=== PATIENT | female | born 1960 | race Caucasian/White ===

== ENCOUNTER 2021-12-14 14:57 | Emergency (ER) | payer BC ==
--- OUTSIDE RECORDS SUMMARY | 2021-12-14 15:01 | XMS REPORT | Continuity of Care Document ---
:1960 Author Organization [facility] t Address [address] [place] [address] Care Team Providers Name Role Phone Pinky FIELDS Primary Care Physician Unavailable Nely Hilliard MD Attending Clinician NELY HILLIARD Attending Clinician Unavailable Payers Payer Name Policy Type Policy Number Effective Date Expiration Date S ource Problems Condition Condition Condition Status Onset Resolution Last Treating Co mments Source Name Details Category Date Date Treatment Clinician Date Varicose Varicose Disease Active Unive rs veins of veins of 9-24 ity of lower lower 00:00: [place] extremitie extremitie 00 Me dical s with s with Branch inflammati inflammati on on Essential Essential Disease Active Uni vers hypertensi hypertensi 6-03 it y of on on 00:00: [place] 00 Medical Branch Class 3 Class 3 Disease Active Univers severe severe 6-03 ity of obesity obesity 00:00: [place] due to due to 00 Medical excess excess Branch calories calories with with serious serious comorbidit comorbidit y and body y and body mass index mass index (BMI) of (BMI) of 40.0 to 40.0 to 44.9 in 44.9 in adult adult Allergies, Adverse Reactions, Alerts Allergy Allergy Status Severity Reaction(s) Onset Inactive Treating Comm ents Source Name Type Date Date Clinician NO KNOWN Drug Active Univers ALLERGIE Class ity of S [place] [facility] Social History Social Habit Start Date Stop Date Quantity Comments Source Exposure to Not sure University of SARS-CoV-2 [place] [facility] (event) Branch History SDOH University o f Alcohol Std [place] [facility] Drinks Branch History SDKS University o f Alcohol Binge [place] [facility] History SDOH University o f Alcohol Comment [place] [facility] Alcohol intake 2021-10-17 2021-10-17 Lifetime University of 00:00:00 00:00:00 non-drinker [place] [facility] (finding) Branch History SDOH 2021-03-14 2021-03-14 1 [place] o f Alcohol Frequency 00:00:00 00:00:00 [place] [facility] Tobacco use and 2021-02-22 2021-02-22 Never used Universit y of exposure 00:00:00 00:00:00 [facility] Sex Assigned At [birth year] Universit y of 00:00:00 00:00:00 [facility] Smoking Status Start Date Stop Date Source Never smoker [facility] Branch Medications Ordered Filled Start Stop Current Ordering Indication Dosage Frequency Signature Comments Components Source Medication Medication Date Date Medication? Clinician (SIG) Name Name lisinopriL- 2021-0 Yes [id number] 1{tbl} Take 1 Univers hydrochloro 1-05 tablet by ity of thiazide 00:00: mouth [place] 10-12.5 mg 00 daily. Medical per tablet Branch Immunizations Ordered Filled Immunization Date Status Comments Sourc e Immunization Name Name Td 2021-02-22 Completed University 00:00:00 [facility] Vital Signs Vital Name Observation Time Observation Value Comments Source Systolic blood 2021-10-17 160 mm[Hg] 160/99 hasn't University o f pressure 15:41:00 taken [facility] Diastolic blood 2021-10-17 99 mm[Hg] 160/99 hasn't University of pressure 15:41:00 taken med [facility] Heart rate 2021-10-17 82 /min University 15:41:00 [facility] Body temperature 2021-10-17 36.61 Claudine University of 15:41:00 [facility] Respiratory rate 2021-10-17 18 /min University 15:41:00 [facility] Body height 2021-10-17 167.6 cm University of 15:41:00 [facility] Body weight 2021-10-17 109.634 kg University of 15:41:00 [facility] BMI 2021-10-17 39.01 kg/m2 University of 15:41:00 [facility] Oxygen saturation 2021-10-17 98 /min University in Arterial blood 15:41:00 [facility] by Pulse oximetry Branch Procedures This patient has no known procedures. Encounters Start End Encounter Admission Attending Care Care Encounter Source Date/Time Date/Time Type Type Clinicians Facility Department ID 2021-10-17 2021-10-17 Office BEBE Hilliard [id number] [facility] 09:30:00 10:42:46 Visit [id number] [facility] AT [id number] Hi dical VICTORY [address] Branch [place] 2021-10-17 2021-10-17 Outpatient R [facility] [id number] [facility] 09:30:00 10:42:46 [facility] Results This patient has no known results.
[2021-12-14] MEDS ORDERED: NA CHLORIDE 0.9% 1,000 ML ONE (15:37)
[2021-12-14 16:02] LABS: Hematocrit 35.7 % (36.0-45.0); MPV 10.4 fL (7.6-11.3); RBC Red Blood Cell Count 4.01 M/uL (3.86-4.86)
[2021-12-14 16:26] LABS: ALT/SGPT 25 U/L (12-78); AST/SGOT 22 U/L (15-37); Albumin 3.4 g/dL (3.4-5.0); Alkaline Phosphatase 91 U/L (45-117); BUN Blood Urea Nitrogen 15 mg/dL (7-18); Bicarbonate 28 mmol/L (21-32); Bilirubin Direct 0.1 mg/dL (0-0.2); Bilirubin Total 0.4 mg/dL (0.2-1.0); Glucose Level 117 mg/dL (74-106); Magnesium 1.7 mg/dL (1.8-2.4); Potassium 3.5 mmol/L (3.5-5.1); Protein, Total 7.2 g/dL (6.4-8.2); Sodium Level 134 mmol/L (136-145)
[2021-12-14 16:31] LABS: Troponin High Sensitivity < 3.00 pg/mL (<58.9)
[2021-12-14 16:44] LABS: Urine Blood 3+ (Negative); Urine Glucose Negative (Negative); Urine Protein Negative (Negative)
[2021-12-14 17:53] LABS: Urine Bacteria >50 /HPF (<20); Urine RBC <5 /HPF (NONE SEEN)
--- NOTE | 2021-12-14 18:15 | ER ---
Nurse's Notes [facility] Name: Norma Stratton Age: 61 yrs Sex: Female : 1960 Arrival Date: 12/14/2021 Time: 15:01 Bed 18 Private MD: Diagnosis: UTI/ Urinary tract infection, site not specified Presentation: 12/14 15:19 Chief complaint: Patient states: BURNING WITH URINATION, LOWER ABDOMINAL PAIN. [place] Coronavirus screen: Vaccine status: Patient reports being unvaccinated. Ebola Screen: Patient denies travel to an Ebola-affected area in the 21 days before illness onset. Initial Sepsis Screen: Does the patient meet any 2 criteria? HR > 90 bpm. Does the patient have a suspected source of infection? Yes:. Risk Assessment: Do you want to hurt yourself or someone else? Patient reports no desire to harm self or others. Onset of symptoms was December 2021. 15:19 Method Of Arrival: Ambulatory [place] 15:19 Acuity: MAGALIE 3 [place] Triage Assessment: 15:21 General: Appears in no apparent distress. Behavior is cooperative, agitated. [place] Historical: - Allergies: 15:21 No Known Allergies; [place] - Home Meds: 15:21 None [Active]; [place] - PMHx: 15:21 None; [place] - PSHx: 15:21 None; [place] - Immunization history:: Adult Immunizations up to date. - Social history:: Smoking status: Patient denies any tobacco usage or history of. Screenin:21 Abuse screen: Denies threats or abuse. Denies injuries from another. Nutritional [place] screening: No deficits noted. Tuberculosis screening: No symptoms or risk factors identified. Fall Risk None identified. Assessment: 15:20 Pain: Complains of pain in abdomen and pelvis. GI: Reports lower abdominal pain, Pain [place] is 8 out of 10 on a pain scale. : Reports burning with urination, pain urgency, urinary frequency. 16:20 Cardiovascular: Reports fatigue, lightheadedness, shortness of breath. [place] Vital Signs: 15:19 BP 150 / 64; Pulse 91; Resp 18; Temp 98.8(O); Pulse Ox 100% on R/A; Weight 102.06 kg; [place] Height 5 ft. 6 in. (167.64 cm); 16:20 BP 126 / 62; Pulse 88; Resp 18; Pulse Ox 99% on R/A; [place] 17:18 BP 127 / 68; Pulse 89; Resp 18; Pulse Ox 99% on R/A; [place] 15:19 Body Mass Index 36.32 (102.06 kg, 167.64 cm) [place] ED Course: 15:01 Patient arrived in ED. jj6 15:09 Terence Tariq NP is PHCP. pm1 15:09 Yannick Noel MD is Attending Physician. pm1 15:11 Nubia Keyes, RN is Primary Nurse. [place] 15:20 Triage completed. [place] 15:21 Patient has correct armband on for positive identification. Bed in low position. [place] 15:21 Arm band placed on. [place] 15:21 No provider procedures requiring assistance completed. [place] 16:44 Urine Microscopic Only Sent. [place] 18:26 IV discontinued, intact, Pressure dressing applied. [place] Administered Medications: 15:45 Drug: NS 0.9% 1000 ml Route: IV; Rate: 1000 ml; Site: right antecubital; [place] 18:24 Follow up: IV Status: Completed infusion [place] 18:24 Drug: Rocephin (cefTRIAXone) 1 grams Route: IV; Rate: calculated rate; Site: right [place] antecubital; 18:24 Follow up: Response: No adverse reaction [place] 18:25 Follow up: IV Status: Completed infusion [place] Outcome: 18:15 Discharge ordered by . pm1 18:25 Discharged to home with family. [place] 18:25 Condition: good 18:25 Discharge instructions given to patient, Prescriptions given X 1. 18:26 Patient left the ED. [place] Signatures: Terence Tariq NP STEAM DRIER OPERATOR pm1 Rajni Langston [email or web address] Nubia Keyes, RN RN [place]
--- NOTE | 2021-12-14 18:16 | EDPHYS ---
Physician Documentation [facility] Name: Norma Stratton Age: 61 yrs Sex: Female : 1960 Arrival Date: 12/14/2021 Time: 15:01 Bed 18 Private MD: ED Physician Yannick Noel HPI: 12/14 15:30 This 61 yrs old Female presents to ER via Ambulatory with complaints of Pelvic Pain, pm1 Low Blood Sugar. 15:30 The patient presents with vaginal itching. Associated signs and symptoms: Pertinent pm1 positives: feeling faint, near syncope. Patient thought that her sugar might be low since she hasn't eaten. Patient started eating food prior to arrival. Patient was also outdoors, Pertinent negatives: fever, vaginal discharge, burning with urination. Severity of symptoms: in the emergency department the symptoms. The patient has not experienced similar symptoms in the past, no history of yeast infection. The patient has not recently seen a physician. Historical: - Allergies: 15:21 No Known Allergies; [place] - Home Meds: 15:21 None [Active]; [place] - PMHx: 15:21 None; [place] - PSHx: 15:21 None; [place] - Immunization history:: Adult Immunizations up to date. - Social history:: Smoking status: Patient denies any tobacco usage or history of. ROS: 15:30 Positive for vaginal itching, Negative for burning with urination. pm1 15:30 Constitutional: Negative for fever, chills, and weight loss, Cardiovascular: Negative for chest pain, palpitations, and edema, Respiratory: Negative for shortness of breath, cough, wheezing, and pleuritic chest pain, Abdomen/GI: Negative for abdominal pain, nausea, vomiting, diarrhea, and constipation. 15:30 MS/Extremity: Negative for injury and deformity, Skin: Negative for injury, rash, and discoloration. 15:30 Neuro: Negative for headache, weakness, numbness, tingling, and seizure. Positve for dizziness 15:30 All other systems are negative. Exam: 15:30 Constitutional: This is a well developed, well nourished patient who is awake, alert, pm1 and in no acute distress. Head/Face: Normocephalic, atraumatic. 15:30 Skin: Warm, dry with normal turgor. Normal color with no rashes, no lesions, and no evidence of cellulitis. MS/ Extremity: Pulses equal, no cyanosis. Neurovascular intact. Full, normal range of motion. 15:30 Cardiovascular: Exam negative for acute changes, Rate: normal, Rhythm: regular, Pulses: no pulse deficits are appreciated. 15:30 Respiratory: Exam negative for acute changes, respiratory distress, shortness of breath. 15:30 Abdomen/GI: Exam negative for acute changes, Inspection: abdomen appears normal, Palpation: abdomen is soft and non-tender, in all quadrants. 15:30 Neuro: Exam negative for acute changes, Orientation: is normal, Mentation: is normal, Motor: is normal, moves all fours. Vital Signs: 15:19 BP 150 / 64; Pulse 91; Resp 18; Temp 98.8(O); Pulse Ox 100% on R/A; Weight 102.06 kg; [place] Height 5 ft. 6 in. (167.64 cm); 16:20 BP 126 / 62; Pulse 88; Resp 18; Pulse Ox 99% on R/A; [place] 17:18 BP 127 / 68; Pulse 89; Resp 18; Pulse Ox 99% on R/A; [place] 15:19 Body Mass Index 36.32 (102.06 kg, 167.64 cm) [place] MDM: 15:17 Patient medically screened. pm1 15:50 Refusal of service: The patient/guardian displays adequate decision making capability pm1 and despite a detailed discussion of alternatives, benefits, risks, and consequences refuses: Patient with complaints of dizziness and near syncope that she attributes to low blood sugar. Patient refused chest x-ray and EKG. 18:15 Data reviewed: vital signs. Data interpreted: Pulse oximetry: on room air is 99 %. pm1 Interpretation: normal. Counseling: I had a detailed discussion with the patient and/or guardian regarding: the historical points, exam findings, and any diagnostic results supporting the discharge/admit diagnosis, lab results, the need for outpatient follow up, to return to the emergency department if symptoms worsen or persist or if there are any questions or concerns that arise at home. 18:15 Refusal of service: The patient/guardian displays adequate decision making capability pm1 and despite a detailed discussion of alternatives, benefits, risks, and consequences refuses: pelvic examination for rule out BV, candidiasis, GC/Chlamydia. 12/14 15:29 Order name: Basic Metabolic Panel; Complete Time: 16:55 pm1 12/14 15:29 Order name: CBC with Diff; Complete Time: 16:22 pm1 12/14 15:29 Order name: LFT's; Complete Time: 16:55 pm1 12/14 15:29 Order name: Magnesium; Complete Time: 16:55 pm1 12/14 15:29 Order name: Troponin HS; Complete Time: 16:55 pm1 12/14 15:29 Order name: Urine Microscopic Only; Complete Time: 18:11 pm1 12/14 15:29 Order name: EKG; Complete Time: 15:29 pm1 12/14 15:29 Order name: Cardiac monitoring; Complete Time: 16:02 pm1 12/14 16:44 Order name: Urine Dipstick-Ancillary; Complete Time: 16:55 EDMS 12/14 17:53 Order name: Urine Culture EDMS 12/14 15:29 Order name: IV Saline Lock; Complete Time: 16:02 pm1 12/14 15:29 Order name: Labs collected and sent; Complete Time: 16:02 pm1 12/14 15:29 Order name: O2 Per Protocol; Complete Time: 16:02 pm1 12/14 15:29 Order name: O2 Sat Monitoring; Complete Time: 16:02 pm1 12/14 15:29 Order name: Urine Dipstick-Ancillary (obtain specimen); Complete Time: 16:44 pm1 Administered Medications: 15:45 Drug: NS 0.9% 1000 ml Route: IV; Rate: 1000 ml; Site: right antecubital; [place] 18:24 Follow up: IV Status: Completed infusion [place] 18:24 Drug: Rocephin (cefTRIAXone) 1 grams Route: IV; Rate: calculated rate; Site: right [place] antecubital; 18:24 Follow up: Response: No adverse reaction [place] 18:25 Follow up: IV Status: Completed infusion [place] Disposition: 12/15 07:23 Co-signature as Attending Physician, Yannick Noel MD. rn Disposition Summary: 12/14/21 18:15 Discharge Ordered Location: Home pm1 Problem: new pm1 Symptoms: have improved pm1 Condition: Stable pm1 Diagnosis - UTI/ Urinary tract infection, site not specified pm1 Followup: pm1 - With: Emergency Department - When: As needed - Reason: Worsening of condition Followup: pm1 - With: Private Physician - When: 2 - 3 days - Reason: Recheck today's complaints, Continuance of care, Re-evaluation by your physician Discharge Instructions: - Discharge Summary Sheet pm1 - Urinary Tract Infection, Adult pm1 Forms: - Medication Reconciliation Form pm1 - Thank You Letter pm1 - Antibiotic Education pm1 - Prescription Opioid Use pm1 Prescriptions: - Bactrim DS 800-160 mg Oral Tablet - take 1 tablet by ORAL route every 12 hours for 10 days; 20 tablet; Refills: 0, pm1 Product Selection Permitted Signatures: Dispatcher [employer] EDMS Yannick Noel MD MD rn Terence Tariq, SUPERVISOR [employer]ACING SUPERVISOR [employer]ACING pm1 Delicia-Nubia Marin RN RN [place] Corrections: (The following items were deleted from the chart) 12/14 16:02 15:29 EKG - Nurse/Tech ordered. pm1 [place] 16:10 15:29 Chest Single View+RAD.RAD.[email or web address] ordered. EDNC EDNC 12/15 02:58 12/14 15:30 Neuro: Negative for headache, weakness, numbness, tingling, and seizure, pm1pm1
[2021-12-14] MEDS ORDERED: CEFTRIAXONE 1000 MG/VIAL ONE (18:22)
[2021-12-14 18:54] VITALS: TEMP 98.8
[2021-12-14 18:55] VITALS: O2SAT 99
[2021-12-14 18:56] VITALS: BP 127/68
== END 2021-12-14 18:26 | disposition home or self-care (01) ==
LOC: ER 14:57
DX: N39.0 Urinary tract infection, site not specified (principal)
CPT/HCPCS: 96361; 87088; 85025; 87086; 80048; 36415; 83735; 80076; 87077; 87186; 84484; 96374; 99283; J7030; 81003; 81015